=== PATIENT | female | born 1990 | race Two or more races ===

== ENCOUNTER 2018-02-16 12:09 | Emergency (ER) | payer MEDICAID, OTHER ==
[~2018-02-16] VITALS: Ht 154.9 cm; Wt 59.0 kg
[2018-02-16 13:25] VITALS: BP 125/73
== END 2018-02-16 14:38 | disposition home or self-care (01) ==
LOC: ER 12:11
DX: M10.9 Gout, unspecified (principal); L03.031 Cellulitis of right toe
CPT/HCPCS: 73630